=== PATIENT | male | born 1970 | race Caucasian/White ===

== ENCOUNTER 2019-08-02 14:09 | Inpatient (IN) | payer BC ==
[~2019-08-02] VITALS: Ht 167.6 cm; Wt 103.0 kg
[2019-08-02 14:16] VITALS: Ht 167.6 cm; Wt 103.0 kg
[2019-08-02 16:50] LABS: BASOPHIL % 0.1 % (0-2); PLATELET COUNT 235 x10^3mcL (130-400); RED CELL DISTRIBUTION WIDTH 13.6 % (11.5-14.5)
[2019-08-02 17:20] LABS: UA SPECIFIC GRAVITY >=1.030 (1.005-1.035); microscopic required? YES; urine erythrocyte 1+ (NEGATIVE)
[2019-08-02 17:42] LABS: ALBUMIN 4.1 g/dL (3.4-5.0); BILIRUBIN TOTAL 0.4 mg/dL (0.20-1.00); CALCIUM 9.3 mg/dL (8.5-10.1); CARBON DIOXIDE 25.7 mmol/L (21-32); CREATININE SERUM 1.6 mg/dL (0.7-1.3)
[2019-08-02 17:43] LABS: TOTAL PROTEIN, SERUM 8.4 g/dL (6.4-8.2)
[2019-08-02] MEDS ORDERED: CIPROFLOXACIN500 MG PO (19:18)
[2019-08-02] MEDS ORDERED: FLO4 PO (19:18)
[2019-08-02] MEDS ORDERED: EPZICOM1 TAB (19:19)
[2019-08-02 20:09] VITALS: BP 136/83
[2019-08-03 05:23] VITALS: BP 132/87
[2019-08-03 07:53] LABS: BASOPHIL % 0.3 % (0-2); PLATELET COUNT 203 x10^3mcL (130-400); RED CELL DISTRIBUTION WIDTH 13.6 % (11.5-14.5)
[2019-08-03 07:55] LABS: CALCIUM 8.5 mg/dL (8.5-10.1); CARBON DIOXIDE 25.5 mmol/L (21-32); CREATININE SERUM 1.4 mg/dL (0.7-1.3); POTASSIUM SERUM 4.6 mmol/L (3.5-5.1)
[2019-08-03 08:30] VITALS: BP 122/80
[2019-08-03 11:44] VITALS: BP 118/68
[2019-08-03 13:02] VITALS: BP 118/68
== END 2019-08-03 14:32 | disposition home or self-care (01) | DRG 690 ==
LOC: ED 14:09 → MU 19:06
PROVIDERS: Emergency Medicine; ADMIT Internal Medicine
DX: N13.6 Pyonephrosis (principal)
CPT/HCPCS: G0378; J0696; J1885; J1956; J2270; J2405; J7030; J7060